=== PATIENT | male | born 1980 | race Caucasian/White ===

== ENCOUNTER 2023-07-12 11:15 | Outpatient (RCR) | payer BC, SELFPAY | END 2023-09-05 11:10 | disposition home or self-care (01) | PROVIDERS: Visit Provider Orthopaedic Surgery Sports Medicine | DX: M75.81 Other shoulder lesions, right shoulder (principal); M25.511 Pain in right shoulder; M62.81 Muscle weakness (generalized); Z51.89 Encounter for other specified aftercare | CPT/HCPCS: 97110; 97140; 97161 ==